=== PATIENT | female | born 1945 | race Caucasian/White ===

== ENCOUNTER 2017-05-22 05:53 | Emergency (ER) | payer MEDICARE, OTHER ==
[2017-05-22] MEDS ORDERED: DIAZEPAM 5 MG TABLET PO ONE ×2 (07:08→08:22)
--- NOTE | 2017-05-22 07:08 | ER Document Report ---
ED GI/ - General Mode of Arrival: Ambulatory Information source: Patient TRAVEL OUTSIDE OF THE U.S. IN LAST 30 DAYS: No - General Chief Complaint: Urinary Problem Stated Complaint: UROLOGY ISSUE Time Seen by Provider: 05/22/17 06:58 Notes: Patient is a 71-year-old female who presents to the emergency department today with complaints of urinary retention. Patient had bladder cancer with a subsequent radical cystectomy with Ector pouch and now Lee pouch. Patient states she had been using a latex catheter for urine removal without any problems however recently she was diagnosed with a UTI and after that she switched to a new "liberator" catheter which worked quite well and reduced the time from 2 hours to approximately 15-30 minutes. Patient states that this morning when she attempted to catherize herself "all she got was blood". Patient states she usually can relieve her bladder spasm with valium but she has not yet tried that this morning. (BERENICE YE) - Related Data Allergies/Adverse Reactions: shellfish derived Allergy (Verified 05/22/17 10:53) Home Medications: Current Home Medications Diazepam [Valium 5 mg Tablet] 2.5 mg PO QIDP PRN 05/22/17 [History] Esomeprazole Magnesium [Nexium 24Hr] 20 mg PO DAILY PRN 05/22/17 [History] Metoprolol Succinate [Toprol Xl 50 mg Tab.sr] 50 mg PO DAILY 05/22/17 [History] Past Medical History - General Information source: Patient - Social History Smoking Status: Never Smoker Cigarette use (# per day): No Frequency of alcohol use: None Drug Abuse: None Lives with: Family Family History: Reviewed & Not Pertinent Patient has suicidal ideation: No Patient has homicidal ideation: No Malignancy Medical History: Reports: Other - Hx of bladder cancer Surgical Hx: Negative Review of Systems - Review of Systems Constitutional: No symptoms reported EENT: No symptoms reported Cardiovascular: No symptoms reported Respiratory: No symptoms reported Gastrointestinal: No symptoms reported Genitourinary: See HPI, Retention Female Genitourinary: No symptoms reported Musculoskeletal: No symptoms reported Skin: No symptoms reported Hematologic/Lymphatic: No symptoms reported Neurological/Psychological: No symptoms reported -: Yes All other systems reviewed and negative Physical Exam - Vital signs Interpretation: Normal - General General appearance: Appears well, Alert - HEENT Head: Normocephalic, Atraumatic Eyes: Normal Pupils: PERRL - Respiratory Respiratory status: No respiratory distress Breath sounds: Normal Chest palpation: Normal - Cardiovascular Rhythm: Regular Heart sounds: Normal auscultation Murmur: No - Abdominal Distension: Distended - firm, opening in umbilicus for urinary removal Bowel sounds: Normal Tenderness: Tender - over umbilicus Organomegaly: No organomegaly - Back Back: Normal, Nontender - Extremities General upper extremity: Normal inspection, Normal ROM. No: Edema General lower extremity: Normal inspection, Normal ROM. No: Edema - Neurological Neuro grossly intact: Yes Cognition: Normal Orientation: AAOx4 [place] Coma Scale Eye Opening: Spontaneous Maycol Coma Scale Verbal: Oriented [place] Coma Scale Motor: Obeys Commands [place] Coma Scale Total: 15 Speech: Normal - Psychological Associated symptoms: Normal affect, Normal mood - Skin Skin Temperature: Warm Skin Moisture: Dry Skin Color: Normal - Vital signs Vitals: Temp Pulse Resp BP Pulse Ox 98.4 F 91 20 103/64 99 05/22/17 06:01 05/22/17 06:01 05/22/17 06:01 05/22/17 06:01 05/22/17 06:01 Course - Re-evaluation Re-evalutation: 05/22/17 14:29 A pigtail catheter was placed in the Kock pouch through a stenotic ostomy. ( BLAYNE LOYD) - Vital Signs Vital signs: Temp Pulse Resp BP Pulse Ox 98.4 F 91 20 103/64 99 05/22/17 06:01 05/22/17 06:01 05/22/17 06:01 05/22/17 06:01 05/22/17 06:01 - Laboratory Laboratory results interpreted by me: 05/22/17 13:30 Urine Protein 30 H Urine Blood SMALL H Urine Nitrite POSITIVE H Ur Leukocyte Esterase LARGE H Discharge - Discharge Clinical Impression: Acute urinary retention, Stenosis of urostomy Condition: Stable Disposition: HOME, SELF-CARE Additional Instructions: Call [facility] office today to schedule an appointment for tomorrow to be seen. Drink plenty of fluids today. Return the emergency room if any problems, including nausea, vomiting, fever or chills. Referrals: [facility] [Provider Group] - Follow up tomorrow (Call [facility] office today to schedule an appointment for tomorrow.) Scribe Attestation: 05/22/17 08:23 I personally performed the services described in the documentation, reviewed and edited the documentation which was dictated to the scribe in my presence, and it accurately records my words and actions. (BLAYNE LOYD) Scribe Documentation - Scribe Written by Dane:: Dane Zarate, 05/22/2017 1038 acting as scribe for :: Toy
[2017-05-22] MEDS ORDERED: METHYLPREDNISOLONE INJ 125 MG/2 ML SDV IV ONE (10:56)
[2017-05-22] MEDS ORDERED: DIPHENHYDRAMINE HCL 50 MG/ML VIAL IV ONE (10:56)
[2017-05-22] MEDS ORDERED: FAMOTIDINE INJ/PF 20 MG/2 ML SDV IV ONE (10:56)
[2017-05-22 13:50] LABS: APPEARANCE,URINE CLOUDY; BILIRUBIN,URINE NEGATIVE (NEGATIVE); GLUCOSE, URINE NEGATIVE (NEGATIVE); KETONES,URINE NEGATIVE (NEGATIVE); PROTEIN,URINE 30 mg/dL (NEGATIVE)
[2017-05-22 13:51] LABS: LEUKOCYTE ESTERASE,URINE LARGE (NEGATIVE); NITRITE,URINE POSITIVE (NEGATIVE); UROBILINOGEN,URINE NEGATIVE mg/dL (<2.0)
--- NOTE | 2017-05-22 14:11 | RADIOLOGY REPORT (SQ) ---
EXAM DESCRIPTION: U/S RETROPERITON (RENAL/AORTA) COMPLETED DATE/TIME: 05/22/2017 1:32 pm REASON FOR STUDY: kock pouch obstruction COMPARISON: Fluoroscopic injection of urinary conduit earlier today TECHNIQUE: Dynamic and static grayscale images acquired of the kidneys and bladder and recorded on P ACS. Additional selected color Doppler and spectral images recorded. LIMITATIONS: None. FINDINGS: The patient has a Lee pouch, which she has been in and out catheter arising. She present ed to the emergency room earlier today, stating that she had been unable to catheterize the pouch for the last 24 hours. Under fluoroscopy, an 8 Spanish pigtail catheter was placed, from the skin openin g at the umbilicus into the scope pouch. The distal pigtail of the pouch is visualized at ultrasound over the right lower quadrant. There is debris in the pouch at ultrasound. Pouch measures at least 30 cm in greatest craniocaudad length. RIGHT KIDNEY: Right kidney measures 9 cm in length, with normal cortical thickness and mild increased echogenicity. There is moderate hydronephrosis and upper hydroureter. No gross cysts. No masses. LEFT KIDNEY: Left kidney measures 8.8 cm in length, with normal cortical thickness and mild increase d echogenicity. There is moderate left hydronephrosis and upper hydroureter. No gross or masses. BLADDER: As above IMPRESSION: Distended Lee pouch in the right lower quadrant. The distal loop of the pigtail draina ge catheter inserted along the catheter tract is identified in the pouch. Moderate bilateral hydronephrosis and upper hydroureter TECHNICAL DOCUMENTATION: JOB ID: [id number] [employer]- All Rights Reserved
[2017-05-22 14:17] LABS: BACTERIA,URINE 2+ /HPF
--- NOTE | 2017-05-22 14:25 | RADIOLOGY REPORT (SQ) ---
EXAM DESCRIPTION: INJECTION ILEAL CONDUIT; PYELOGRAM ANTEGRADE COMPLETED DATE/TIME: 05/22/2017 12:42 pm; 05/22/2017 1:47 pm REASON FOR STUDY: CHECK POUCH TRACT INJECTION W/FLOURO; kock pouch tract injection w/ flouroscopy COMPARISON: No previous imaging TECHNIQUE: Patient has a Lee pouch, created in the late . For the last 24 hours, she has been unable to effectively self-catheterize, and was seen in the emergency room. Patient was placed supine on the fluoroscopy table, scan along the periumbilical region was prepped a nd draped in sterile fashion. A 5 Pashto Kumpe the catheter was placed into the opening of the yobany ter tract. Gentle hand injection of contrast outlines the tract from the skin to the Lee pouch in t he right lower quadrant. This tract was followed with a 0.18 guide wire, and the catheter advanced s o that the tip was in the pouch. The 0.18 guidewire was exchanged for 0.38 guidewire, and an 8 Frenc h locking pigtail catheter was placed, with the pigtail loop in the right lower quadrant Lee pouch. The catheter was secured to the patient's skin, and catheter was placed to a urinary drainage bag. Patient understands that this pigtail catheter will be exchanged in 2 weeks for a larger catheter, to dilate the tract. This will be performed at [facility] in radiology special [facility]. These findings were discussed with Dr. Roger from [facility] 1300 hours 05/22/2017 and als o discussed with Dr. Yeager in the emergency room. A urology appointment prior to her catheter exchan ge is recommended. RADIATION DOSE: Total fluoro time 3 minutes 15 seconds LIMITATIONS: None. FINDINGS: Patient was placed supine on the fluoroscopy table, scan along the periumbilical region wa s prepped and draped in sterile fashion. A 5 Pashto Kumpe the catheter was placed into the opening of the catheter tract. Gentle hand injection of contrast outlines the tract from the skin to the Lee pouch in the right lower quadrant. Tract was followed with a 0.18 guide wire, and the catheter advanced so that the tip was in the pouch . The 0.18 guidewire was exchanged for 0.38 guidewire, and an 8 Pashto locking pigtail catheter was p laced, with the pigtail loop in the right lower quadrant Lee pouch. The catheter was secured to the patient's skin, and catheter was placed to a urinary drainage bag. P adrianne understands that this pigtail catheter will be exchanged in 2 weeks for a larger catheter, to dilate the tract. This will be performed at [facility] in radiology special procedu res. These findings were discussed with Dr. Roger from [facility] 1300 hours 05/22/2017 and als o discussed with Dr. Yeagre in the emergency room. A urology appointment prior to her catheter exchang e is recommended. IMPRESSION: Successful drainage of the right lower quadrant Lee pouch, with an 8 Pashto locking pig tail catheter. Catheter should be up-sized in 2 weeks COMMENT: Patient has an anaphylactoid shellfish allergy. She was pre-medicated prior to the contras t pouch injection today with the IV steroid prep without immediate complication. Total contrast used for today's study, 60 mL of Isovue-300 TECHNICAL DOCUMENTATION: JOB ID: [id number] [employer]- All Rights Reserved
--- NOTE | 2017-05-22 14:25 | RADIOLOGY REPORT (SQ) ---
EXAM DESCRIPTION: INJECTION ILEAL CONDUIT; PYELOGRAM ANTEGRADE COMPLETED DATE/TIME: 05/22/2017 12:42 pm; 05/22/2017 1:47 pm REASON FOR STUDY: CHECK POUCH TRACT INJECTION W/FLOURO; kock pouch tract injection w/ flouroscopy COMPARISON: No previous imaging TECHNIQUE: Patient has a Lee pouch, created in the late . For the last 24 hours, she has been unable to effectively self-catheterize, and was seen in the emergency room. Patient was placed supine on the fluoroscopy table, scan along the periumbilical region was prepped a nd draped in sterile fashion. A 5 Welsh Kumpe the catheter was placed into the opening of the yobany ter tract. Gentle hand injection of contrast outlines the tract from the skin to the Lee pouch in t he right lower quadrant. This tract was followed with a 0.18 guide wire, and the catheter advanced s o that the tip was in the pouch. The 0.18 guidewire was exchanged for 0.38 guidewire, and an 8 Frenc h locking pigtail catheter was placed, with the pigtail loop in the right lower quadrant Lee pouch. The catheter was secured to the patient's skin, and catheter was placed to a urinary drainage bag. Patient understands that this pigtail catheter will be exchanged in 2 weeks for a larger catheter, to dilate the tract. This will be performed at [facility] in radiology special [facility]. These findings were discussed with Dr. Roger from [facility] 1300 hours 05/22/2017 and als o discussed with Dr. Yeager in the emergency room. A urology appointment prior to her catheter exchan ge is recommended. RADIATION DOSE: Total fluoro time 3 minutes 15 seconds LIMITATIONS: None. FINDINGS: Patient was placed supine on the fluoroscopy table, scan along the periumbilical region wa s prepped and draped in sterile fashion. A 5 Welsh Kumpe the catheter was placed into the opening of the catheter tract. Gentle hand injection of contrast outlines the tract from the skin to the Lee pouch in the right lower quadrant. Tract was followed with a 0.18 guide wire, and the catheter advanced so that the tip was in the pouch . The 0.18 guidewire was exchanged for 0.38 guidewire, and an 8 Welsh locking pigtail catheter was p laced, with the pigtail loop in the right lower quadrant Lee pouch. The catheter was secured to the patient's skin, and catheter was placed to a urinary drainage bag. P adrianne understands that this pigtail catheter will be exchanged in 2 weeks for a larger catheter, to dilate the tract. This will be performed at [facility] in radiology special procedu res. These findings were discussed with Dr. Roger from [facility] 1300 hours 05/22/2017 and als o discussed with Dr. Yeager in the emergency room. A urology appointment prior to her catheter exchang e is recommended. IMPRESSION: Successful drainage of the right lower quadrant Lee pouch, with an 8 Welsh locking pig tail catheter. Catheter should be up-sized in 2 weeks COMMENT: Patient has an anaphylactoid shellfish allergy. She was pre-medicated prior to the contras t pouch injection today with the IV steroid prep without immediate complication. Total contrast used for today's study, 60 mL of Isovue-300 TECHNICAL DOCUMENTATION: JOB ID: [id number] [employer] [facility] [employer]- All Rights Reserved
[2017-05-22 14:45] VITALS: BP 130/92
== END 2017-05-22 14:41 | disposition home or self-care (01) ==
LOC: ER 05:53
DX: R33.9 Retention of urine, unspecified (principal); R39.198 Other difficulties with micturition; Z79.899 Other long term (current) drug therapy; Z85.51 Personal history of malignant neoplasm of bladder; Y83.3 Surgical operation with formation of external stoma as the cause of abnormal reaction of the patient, or of later complication, without mention of misadventure at the time of the procedure
CPT/HCPCS: 99284; 96374; 96375; 87086; 87088; 81001; 87186; 74425; 50690; 76770; C1769 ×2; A9270; J1200; J2930; S0028

== ENCOUNTER 2017-05-23 03:04 | Emergency (ER) | payer MEDICARE, OTHER ==
[2017-05-23 03:19] VITALS: BP 175/80
--- NOTE | 2017-05-23 05:28 | ER Document Report ---
ED GI/ - General TRAVEL OUTSIDE OF THE [place].S. IN LAST 30 DAYS: No - General Chief Complaint: Urinary Retention Stated Complaint: URINARY ISSUES Time Seen by Provider: 05/23/17 03:52 Notes: Patient is a 71-year-old patient is a female comes emergency department for chief complaint of her Darnell catheter not draining. She reports distention and pain in her abdomen. Patient has a history of a cystectomy 22 years ago secondary to bladder cancer, she has a Lee pouch that she typically self catheterizes she was in the emergency department here yesterday and had this Darnell catheter placed but it stopped draining. She denies nausea or vomiting, flank pain, fever. she states she was told to go to [facility] urology in [place] later this morning. (CASANDRA MILES) - Related Data Allergies/Adverse Reactions: shellfish derived Allergy (Verified 05/23/17 03:16) Past Medical History - General Information source: Patient - Social History Smoking Status: Never Smoker Frequency of alcohol use: None Drug Abuse: None Lives with: Family Family History: Reviewed & Not Pertinent - Past Medical History Cardiac Medical History: Reports: Hx Hypertension Renal/ Medical History: Denies: Hx Peritoneal Dialysis Past Surgical History: Reports: Hx Bowel Surgery, Hx Genitourinary Surgery - bladder removed - Immunizations Immunizations up to date: Yes Hx Diphtheria, Pertussis, Tetanus Vaccination: Yes Review of Systems - Review of Systems Constitutional: No symptoms reported EENT: No symptoms reported Cardiovascular: No symptoms reported Respiratory: No symptoms reported Gastrointestinal: No symptoms reported Genitourinary: See HPI Female Genitourinary: No symptoms reported Musculoskeletal: No symptoms reported Skin: No symptoms reported Hematologic/Lymphatic: No symptoms reported Neurological/Psychological: No symptoms reported Physical Exam - Vital signs Interpretation: Normal - General General appearance: Appears well, Alert In distress: None - HEENT Head: Normocephalic, Atraumatic Eyes: Normal Pupils: PERRL - Respiratory Respiratory status: No respiratory distress Chest status: Nontender Breath sounds: Normal Chest palpation: Normal - Cardiovascular Rhythm: Regular Heart sounds: Normal auscultation Murmur: No - Abdominal Inspection: Normal Distension: No distension Bowel sounds: Normal Tenderness: Tender - Mild tenderness in the right lower abdomen/suprapubic area surrounding a Darnell catheter ostomy. Area appears to be mildly distended Organomegaly: No organomegaly - Back Back: Normal, Nontender. No: Tender, CVA tenderness - Extremities General upper extremity: Normal inspection, Nontender, Normal ROM, Normal strength General lower extremity: Normal inspection, Nontender, Normal ROM, Normal strength - Neurological Neuro grossly intact: Yes Cognition: Normal Orientation: AAOx4 Maycol Coma Scale Eye Opening: Spontaneous Portal Coma Scale Verbal: Oriented Maycol Coma Scale Motor: Obeys Commands Maycol Coma Scale Total: 15 Speech: Normal Motor strength normal: LUE, RUE, LLE, RLE Sensory: Normal - Psychological Associated symptoms: Normal affect, Normal mood - Skin Skin Temperature: Warm Skin Moisture: Dry Skin Color: Normal - Vital signs Vitals: Temp Pulse Resp BP Pulse Ox 98.4 F 84 18 175/80 H 98 05/23/17 03:16 05/23/17 03:16 05/23/17 03:16 05/23/17 03:16 05/23/17 03:16 Course - Re-evaluation Re-evalutation: I asked Dr. Poole for his recommendation. He did evaluate the situation at bedside, recommended saline flush with aspiration to try to dislodge any sediment. Able to perform and a large amount of sediment was dislodged, after this a very large amount of urine output was obtained. I did call Dr. Freeman, drill press operator numerical control for Dr. Weber (patient's Urologist), recommendation was for irrigation for drainage and follow-up in the office later today. Patient has drained out about 1.5 L of urine from her pouch. Confirmed on ultrasound this was almost entirely empty. Patient to follow-up with urology later today and return for any concerning symptoms. Patient states understanding and agreement, states understanding and agreement. (CASANDRA MILES) 05/23/17 05:50 I saw the patient in conjunction with Casandra Miles, physician offset press assistant. He was counseled except patient has a Lee pouch. Less than 24 hours ago she was seen here because she could not self cath it. It sounds as if the tract was become stenotic. Interventional radiology placed a drain in place and hooked up to a catheter. She said she was doing well until tonight and it stopped draining. At bedside he did a bedside ultrasound which showed that the drain still appeared to be in correct positioning. She did have a lot of urine. I flushed the catheter and then withdrew mucus. I withdrew mucus until she had free- flowing of urine. Since then patient has drained over a liter of urine and is feeling improved. She said she will follow-up with Dr. Weber, her urologist, this morning. Patient otherwise looks well and has no further concerns. Dictation of this chart was performed using voice recognition software; therefore, there may be some unintended grammatical errors. (AILYN POOLE) - Vital Signs Vital signs: Temp Pulse Resp BP Pulse Ox 98.4 F 84 18 175/80 H 98 05/23/17 03:16 05/23/17 03:16 05/23/17 03:16 05/23/17 03:16 05/23/17 03:16 Discharge - Discharge Clinical Impression: Acute urinary retention, Complication of urostomy Condition: Stable Disposition: HOME, SELF-CARE Additional Instructions: Please follow-up with urology in the office today. See the referral below. Return to the emergency department for any concerning symptoms including vomiting, fever, etc. [facility] Urologist in [place], [place] Address: [address] [place] [id number] Referrals: MI MEDLEY MD [Primary Care Provider] - Follow up as needed
== END 2017-05-23 06:29 | disposition home or self-care (01) ==
LOC: ER 03:04
DX: T83.098A Other mechanical complication of other urinary catheter, initial encounter (principal); R33.9 Retention of urine, unspecified; R39.198 Other difficulties with micturition; R14.0 Abdominal distension (gaseous); Z85.51 Personal history of malignant neoplasm of bladder
CPT/HCPCS: 99283

== ENCOUNTER 2017-05-23 17:07 | Emergency (ER) | payer MEDICARE, OTHER ==
--- NOTE | 2017-05-23 18:57 | ER Document Report ---
ED GI/ - General Mode of Arrival: Ambulatory Information source: Patient TRAVEL OUTSIDE OF THE [place] IN LAST 30 DAYS: No - HPI Similar symptoms previously: No Recently seen / treated by doctor: No - General Chief Complaint: Urinary Retention Stated Complaint: URINARY PROBLEMS Time Seen by Provider: 05/23/17 18:32 - HPI Notes: Patient is a 71 year old female presenting to the emergency department for problems relating to her catheter including urinary retention. Patient was seen on the morning of 05/22/17 as well as this morning for similar symptoms. Patient has a history of bladder cancer in 1995 and has a Paula pouch that is connected with a catheter. Patient has been using a latex catheter until about 3 months ago when she switched to a different type. Patient states that for the last 3 days she has had difficulty getting her catheter to drain properly. Patient had difficulty getting the catheter to drain 3 days ago and she got blood when attempting to drain. Patient states had a pigtail catheter placed on 05/22/17. Patient also had about 1.5 L of urine/mucus drained from her catheter with saline flush and aspiration. Patient states she has an appointment with Dr. Roger, urology on Saturday. Patient is having the same problem of not getting any urine output through the catheter. Patient states her and her attempted to flush the catheter with 1 flush of saline without success. Patient is having normal bowel movements. Patient has no other complaints or symptoms. (FUAD ESTRELLA) - Related Data Allergies/Adverse Reactions: codeine Allergy (Verified 05/23/17 17:26) meperidine [From Demerol] Allergy (Verified 05/23/17 17:26) shellfish derived Allergy (Verified 05/23/17 17:26) Past Medical History - General Information source: Patient - Social History Smoking Status: Never Smoker Cigarette use (# per day): No Chew tobacco use (# tins/day): No Smoking Education Provided: No Frequency of alcohol use: None Drug Abuse: None Family History: None Patient has suicidal ideation: No Patient has homicidal ideation: No - Past Medical History Cardiac Medical History: Reports: Hx Hypertension Malignancy Medical History: Reports: Other - bladder cancer 1995 Past Surgical History: Reports: Hx Bowel Surgery, Hx Genitourinary Surgery - bladder removed, paula pouch with catheter 1995 - Immunizations Immunizations up to date: Yes Hx Diphtheria, Pertussis, Tetanus Vaccination: Yes Review of Systems - Review of Systems Constitutional: No symptoms reported EENT: No symptoms reported Cardiovascular: No symptoms reported Respiratory: No symptoms reported Gastrointestinal: No symptoms reported Genitourinary: See HPI, Retention, Other Female Genitourinary: No symptoms reported Musculoskeletal: No symptoms reported Skin: No symptoms reported Hematologic/Lymphatic: No symptoms reported Neurological/Psychological: No symptoms reported -: Yes All other systems reviewed and negative Physical Exam - Vital signs Interpretation: Hypertensive - Vital signs Vitals: Temp Pulse Resp BP Pulse Ox 98.5 F 76 16 190/86 H 100 05/23/17 17:23 05/23/17 17:23 05/23/17 17:23 05/23/17 17:23 05/23/17 17:23 - Notes Notes: GENERAL: Alert, interacts well. No acute distress. HEAD: Normocephalic, atraumatic. EYES: Pupils equal, round, and reactive to light. Extraocular movements intact. ENT: Oral mucosa moist, tongue midline. NECK: Full range of motion. Supple. Trachea midline. LUNGS: Clear to auscultation bilaterally, no wheezes, rales, or rhonchi. No respiratory distress. HEART: Regular rate and rhythm. No murmurs, gallops, or rubs. ABDOMEN: Soft, non-tender. Non-distended. Bowel sounds present in all 4 quadrants. Catheter entering a Paula pouch on the right side of the abdomen. No drainage from the catheter. EXTREMITIES: Moves all 4 extremities spontaneously. No edema. No cyanosis. Catheter leg bag strapped to the right lower extremity. NEUROLOGICAL: Alert and oriented x3. Normal speech. PSYCH: Normal affect, normal mood. SKIN: Warm, dry, normal turgor. No rashes or lesions noted. (FUAD ESTRELLA) Course - Re-evaluation Re-evalutation: 05/23/17 20:33 Catheter was irrigated and aspirated, over a liter of urine was obtained as well as a large amount of mucus. Patient and were taught how to aspirate the mucus. Patient feels much better. Patient will be discharged home. I did review her urine culture from prior visit and it shows gram- negative rods, patient will be started on Keflex and discharged home. Continue to encourage to follow-up with urology as an outpatient for her appointment on Saturday. (DARWIN PETER) - Vital Signs Vital signs: Temp Pulse Resp BP Pulse Ox 97.9 F 68 16 169/75 H 97 05/23/17 20:48 05/23/17 20:48 05/23/17 17:23 05/23/17 20:48 05/23/17 20:48 Discharge - Discharge Clinical Impression: Acute urinary retention Urinary tract infection Qualifiers: Urinary tract infection type: urethritis Qualified Code(s): N34.2 - Other urethritis Urinary tract infection associated with catheterization of urinary tract Qualifiers: Indwelling urinary catheter type: cystostomy catheter Encounter type: initial encounter Qualified Code(s): T83.510A - Infection and inflammatory reaction due to cystostomy catheter, initial encounter Hypertension Qualifiers: Hypertension type: essential hypertension Qualified Code(s): I10 - Essential ( primary) hypertension Condition: Stable Disposition: HOME, SELF-CARE Additional Instructions: Please aspirate and irrigate your Darnell catheter every 4-6 hours for the next 3 days. After that you may stretch it to every 6-8 hours as needed. Please keep your follow-up appointment with your urologist on Saturday. I have prescribed you Keflex, your urine culture from your last visit is showing that you do have an infection in your urine. This should help to fix it. Prescriptions: Cephalexin Monohydrate [Keflex 500 mg Capsule] 500 mg PO Q6H 5 Days capsule Referrals: MI MEDLEY MD [Primary Care Provider] - Follow up as needed Scribe Attestation: 05/23/17 22:46 I personally performed the services described in the documentation, reviewed and edited the documentation which was dictated to the scribe in my presence, and it accurately records my words and actions. (DARWIN PETER) Scribe Documentation - Scribe Written by Nicoleibbereket:: Dane Dugan 05/23/2017 22:12 acting as scribe for :: Karthik
[2017-05-23 20:49] VITALS: BP 169/75
== END 2017-05-23 21:08 | disposition home or self-care (01) ==
LOC: ER 17:07
DX: T83.510A Infection and inflammatory reaction due to cystostomy catheter, initial encounter (principal); N34.2 Other urethritis; R33.9 Retention of urine, unspecified; R39.198 Other difficulties with micturition; I10 Essential (primary) hypertension
CPT/HCPCS: 99283